=== PATIENT | female | born 1995 ===

== ENCOUNTER 2022-04-03 13:02 | Day surgery (SDC) | payer OTHER ==
[~2022-04-03 13:02] MED LIST: Doxycycline Monohydrate 100 MG Cap PO SCH; Doxycycline Susp 25 MG/5 ML 60 ML Bottle PO SCH; Lactated Ringers 1,000 ML IV SCH; Lidocaine 1% 2 ML ONE; Midazolam 1 MG/ML 2 ML SDV ONE; Ondansetron 4 MG/2 ML SDV IVPUSH PRN; Ondansetron 4 MG/2 ML SDV ONE; Propofol 200 MG/20 ML SDV ONE; Sodium Chloride 0.9% 10 ML Syringe FLUSH PRN; fentaNYL 100 MCG/2 ML SDV IVPUSH PRN; fentaNYL 100 MCG/2 ML SDV ONE
[2022-04-03] MEDS ORDERED: Methylergonovine 0.2 MG/1 ML Amp ONE (13:07)
[2022-04-03] MEDS ORDERED: Lidocaine 1%/Sod Bicarbonate in NS 8.4% 1 ML Syringe IDERM ONE (14:30)
[2022-04-03] MEDS ORDERED: fentaNYL 100 MCG/2 ML SDV IVPUSH PRN (15:15)
[2022-04-03] MEDS ORDERED: HYDROmorphone 0.5 MG/0.5 ML Syringe IVPUSH PRN (15:15)
[2022-04-03] MEDS ORDERED: Ondansetron 4 MG/2 ML SDV IVPUSH PRN (15:15)
[2022-04-03] MEDS ORDERED: Ketorolac 30 MG/ML SDV IVPUSH SCH (15:27)
[2022-04-03] MEDS ORDERED: Sodium Chloride 0.9% 10 ML Syringe FLUSH SCH (21:00)
== END 2022-04-03 16:45 | disposition home or self-care (01) ==
LOC: JD.SDS 13:02
PROVIDERS: ATTEND Obstetrics & Gynecology
DX: O02.1 Missed abortion (principal); O99.891 Other specified diseases and conditions complicating pregnancy; R93.89 Abnormal findings on diagnostic imaging of other specified body structures; Z98.890 Other specified postprocedural states
CPT/HCPCS: 36415; 59820; 81003; 84702; 86850; 86900; 86901; A9270; J1885; J2210; J2250; J2405; J2704; J3010; J7120; 01965

== ENCOUNTER 2023-03-29 05:56 | Inpatient (IN) | payer BC ==
[2023-03-29] MEDS ORDERED: Nalbuphine 10 MG/0.5 ML Syringe IVPUSH PRN (19:28)
[2023-03-29] MEDS ORDERED: Lidocaine 1% 50 ML MDV INJECT ONE (19:28)
[2023-03-29] MEDS ORDERED: Sodium Chloride 0.9% 10 ML Syringe FLUSH PRN (19:28)
[2023-03-29] MEDS ORDERED: Ondansetron 4 MG/2 ML SDV IVPUSH PRN (19:28)
[2023-03-29] MEDS ORDERED: Oxytocin/Lactated Ringers 10 UNIT/1,000 ML BAG IV SCH ×2 (19:30→20:15)
[2023-03-29 20:18] LABS: BASOPHILS ABSOLUTE AUTO 0.1 K/mm3 (0.0-0.2); BASOPHILS PERCENT AUTO 0.6 % (0.0-1.0); EOSINOPHILS ABSOLUTE AUTO 0.1 K/mm3 (0.0-0.4); EOSINOPHILS PERCENT AUTO 1.1 % (0.0-6.0); HEMATOCRIT 34.8 % (37.0-47.0); HEMOGLOBIN 12.3 gm/dl (12.0-16.0); IMMATURE GRAN ABSOLUTE AUTO 0.42 K/mm3 (0.00-0.05); IMMATURE GRAN PERCENT AUTO 3.6 % (0.0-0.4); LYMPHOCYTES ABSOLUTE AUTO 2.1 K/mm3 (1.0-4.8); LYMPHOCYTES PERCENT AUTO 18.3 % (24.0-44.0); MEAN CORPUSCULAR HGB CONC 35.3 g/dl (32.0-36.0); MEAN CORPUSCULAR VOLUME 96.1 fl (83.0-99.0); MEAN PLATELET VOLUME 8.5 fl (9.4-12.3); MONOCYTES ABSOLUTE AUTO 0.8 K/mm3 (0.0-0.8); MONOCYTES PERCENT AUTO 6.8 % (0.0-8.0); NEUTROPHILS ABSOLUTE AUTO 8.1 K/mm3 (1.8-7.7); NEUTROPHILS PERCENT AUTO 69.6 % (41.0-71.0); PLATELET COUNT,PLT 271 K/mm3 (150-400); RED BLOOD CELL COUNT 3.62 M/mm3 (4.10-5.30); WHITE BLOOD CELL COUNT,WBC 11.66 K/mm3 (3.9-11.3)
[2023-03-29] MEDS: Lactated Ringers 1,000 ML IV SCH ×2 (21:48→22:39)
[2023-03-29] MEDS ORDERED: fentaNYL 100 MCG/2 ML SDV EPIDUR PRN (22:21)
[2023-03-29] MEDS ORDERED: Bupivacaine/fentaNYL/NS 100 ML Bag EPIDUR PRN (22:21)
[2023-03-29] MEDS ORDERED: diphenhydrAMINE 50 MG/ML SDV IVPUSH PRN (22:21)
[2023-03-29] MEDS ORDERED: ePHEDrine 50 MG/ML SDV IVPUSH PRN (22:21)
[2023-03-30] MEDS ORDERED: Bupivacaine 0.25% 10 ML SDV ONE (02:00)
[2023-03-30] MEDS ORDERED: Oxytocin/Lactated Ringers 10 UNIT/1,000 ML BAG IV SCH (09:03)
[2023-03-30] MEDS ORDERED: Acetaminophen 325 MG Tab PO PRN (09:03)
[2023-03-30] MEDS ORDERED: Magnesium Hydroxide 400 MG/5 ML Susp 30 ML Cup PO PRN (09:03)
[2023-03-30] MEDS ORDERED: Hydrocortisone Acetate 25 MG Supp RECTAL PRN (09:03)
[2023-03-30] MEDS: Sodium Chloride 0.9% 10 ML Syringe FLUSH SCH (09:05)
[2023-03-30] MEDS: Docusate Sodium 100 MG Cap PO SCH (09:18)
[2023-03-30] MEDS: Benzocaine/Menthol 20%-0.5% Spray 78 GM Cannister TOP PRN (09:18)
[2023-03-30] MEDS: Prenatal Multivitamin with Calcium/Folic Acid/Iron Tab PO SCH (09:18)
[2023-03-30] MEDS: Witch Hazel Medicated Pads 40/Jar TOP PRN (09:18)
[2023-03-30] MEDS: Ibuprofen 600 MG Tab PO PRN (09:18)
[2023-03-31] MEDS: Ibuprofen 600 MG Tab PO PRN (08:45)
[2023-03-31] MEDS: Prenatal Multivitamin with Calcium/Folic Acid/Iron Tab PO SCH (08:45)
[2023-03-31] MEDS: Docusate Sodium 100 MG Cap PO SCH ×2 (09:02→09:04)
[2023-04-01] MEDS: Prenatal Multivitamin with Calcium/Folic Acid/Iron Tab PO SCH (08:00)
[2023-04-01] MEDS: Docusate Sodium 100 MG Cap PO SCH ×2 (08:00)
[2023-04-01] MEDS: Ibuprofen 600 MG Tab PO PRN (08:00)
[2023-04-01] MEDS: Benzocaine/Menthol 20%-0.5% Spray 78 GM Cannister TOP PRN (10:01)
[2023-04-01] MEDS: Witch Hazel Medicated Pads 40/Jar TOP PRN (10:01)
== END 2023-04-01 11:56 | disposition home or self-care (01) | DRG 542 ==
LOC: JD.OB 05:56 → OBSVTOIN 03-30 05:56 → JD.OB 03-30 06:23
PROVIDERS: ADMIT Obstetrics & Gynecology; ATTEND Obstetrics & Gynecology
PROC: 10E0XZZ Delivery of Products of Conception, External Approach (ICD-10-PCS; principal; 2023-03-30)
PROC: 10907ZC Drainage of Amniotic Fluid, Therapeutic from Products of Conception, Via Natural or Artificial Opening (ICD-10-PCS; 2023-03-30)
PROC: 0DQR0ZZ Repair Anal Sphincter, Open Approach (ICD-10-PCS; 2023-03-30)
PROC: 3E0R3BZ Introduction of Anesthetic Agent into Spinal Canal, Percutaneous Approach (ICD-10-PCS; 2023-03-30)
PROC: 00HU33Z Insertion of Infusion Device into Spinal Canal, Percutaneous Approach (ICD-10-PCS; 2023-03-30)
DX: O70.21 Third degree perineal laceration during delivery, IIIa (principal); Z37.0 Single live birth; O77.0 Labor and delivery complicated by meconium in amniotic fluid; Z3A.39 39 weeks gestation of pregnancy
CPT/HCPCS: 01967; 36415; 51702; 59025; 59409; 85025; 86592; 86850; 86900; 86901; A9270-GY; J2590; J3010; J3490; J7120